=== PATIENT | female | born 1980 | race Caucasian/White ===

== ENCOUNTER 2023-06-12 20:22 | Observation (INO) | payer BC, SELFPAY ==
--- NOTE | ~2023-06-12 | XR_ITS ---
EXAMINATION: XR chest 1V Exam Date/Time: 06/12/2023 21:05 CDT HISTORY: AMS POSSIBLE GRAND MAL SEIZURE PER NOTE Comparison: None. RESULT: Lines, tubes, and devices: None. Lungs and pleura: 4.2 cm cavitary lesion in the right upper lobe. Cardiomediastinal silhouette: Stable. Other: No acute osseous or upper abdominal finding. IMPRESSION: 4.2 cm cavitary lesion in the right upper lobe. Differential consists of infection (including tubercu losis), cavitary malignancy, noninfectious granuloma, and pulmonary infarct. Reviewed, dictated and finalized at location K. IMPRESSION: 4.2 cm cavitary lesion in the right upper lobe. Differential consists of infect ion (including tuberculosis), cavitary malignancy, noninfectious granuloma, and pulmonary infarct.
--- NOTE | ~2023-06-12 | MR_ITS ---
EXAMINATION: MR brain/brain stem wo/w con DATE: 06/13/2023 11:00 INDICATION: AMS, seizure? TECHNIQUE: Magnetic resonance imaging (MRI) of the brain and brainstem was performed without and with 10 mL MultiHance intravenous contrast. Sequences included sagittal and axial T1-weighted SE, axial d iffusion-weighted, axial T2*-weighted GRE, axial and coronal T2-weighted FLAIR, axial T2-weighted Pro peller, coronal FSPGR 3-D and T2 FLAIR. Postcontrast axial, sagittal, and coronal T1-weighted SE was obtained. Apparent diffusion coefficient (ADC) maps were created. COMPARISON: CT brain 06/12/2023. FINDINGS: No abnormal restricted diffusion to suggest acute ischemic infarct. No MRI evidence of hemorrhage or extra-axial collection. No suspicious foci of susceptibility to suggest prior intraparenchymal hemorr davie. Normal white matter signal. No evidence of advanced or lobar predominant parenchymal volume los s. The basilar cisterns are patent. Flow voids are preserved. Paranasal sinuses are within normal ruiz its. Globes and orbital contents are within normal limits. No abnormal enhancement. IMPRESSION: Normal MR brain findings. Reviewed, dictated and finalized at location K. IMPRESSION: Normal MR brain findings.
--- NOTE | ~2023-06-12 | CT_ITS ---
EXAMINATION: CT brain wo con DATE: 06/12/2023 21:10 INDICATION: AMS, possible seizure . TECHNIQUE: Computed tomography (CT) of the head was performed without intravenous contrast. The mA wa s adjusted according to patient size. Iterative reconstruction technique was employed. The dose-lengt h product was 756.67 mGy-cm. COMPARISON: None. FINDINGS: No acute intracranial hemorrhage or extra-axial fluid collection. No hydrocephalus, mass, or herniation. No acute ischemic infarct. Unremarkable dural venous sinus attenuation. No acute osseous abnormality. The aerated spaces are clear. IMPRESSION: No acute intracranial process. Reviewed, dictated and finalized at location K.
--- NOTE | ~2023-06-12 | US_ITS ---
EXAMINATION: US right upper quadrant DATE: 06/13/2023 16:21 INDICATION: elevated liver enzymes, hyperemic gallbladder TECHNIQUE: Multiple grayscale and Doppler ultrasound images of the right upper quadrant were obtained . COMPARISON: CTPA chest, abdomen/pelvis 06/12/2023. FINDINGS: The visualized portions of the pancreas are normal. Mild liver enlargement. Increased liver parenchyma echogenicity. No surface nodularity. Normal hepatopetal flow in the main portal vein. The gallbladder is partially collapsed, contains mobile sludge and echogenic foci likely representing st ones, without wall thickening. The common bile duct measures 3 mm. There was no sonographic [place] si gn. IMPRESSION: Mild hepatomegaly. Gallstones and biliary sludge. No pericholecystic fluid or gallbladder wall thicke madi. Reviewed, dictated and finalized at location K. IMPRESSION: Mild hepatomegaly. Gallstones and biliary sludge. No pericholecystic fluid or g allbladder wall thickening.
--- NOTE | ~2023-06-12 | CT_ITS ---
EXAMINATION: CTA chest PE abdomen pel DATE: 06/12/2023 23:22 INDICATION: abnormal CXR TECHNIQUE: Computed tomography angiography (CTA) of the chest was performed with 100 mL Omnipaque-350 intravenous contrast timed to evaluate the pulmonary arteries, followed by portal venous phase imagi ng of the abdomen and pelvis. Coronal maximum intensity projection 3D-reconstructions were created by the technologist. The dose-length product (DLP) was 322.41 mGy-cm. Automated exposure control and it erative reconstruction technique were employed. COMPARISON: X-ray chest, same date. FINDINGS: CHEST: Lung parenchyma and airways: 4.3 cm cavitary mass in the right upper lobe with considerable surroundi ng spiculation, eccentric wall thickening, and internal debris and fluid. Medial basilar scar in the left lower lobe. Lungs otherwise clear. Patent airways. Pleura: Unremarkable. Thoracic inlet, axillae and chest wall: No thyroid or soft tissue mass. Thoracic aorta: No significant dilation. No dissection. Mediastinum: Mildly enlarged right hilar nodes. Patulous fluid-filled esophagus. Distal esophageal wa ll thickening. Moderate hiatal hernia. Heart and pericardium: Normal. Coronary artery calcifications: Absent. Thoracic bones: Mild anterior wedge deformity at C7, T6, and T7. Moderate anterior wedge deformity at T8. Concave endplate deformities at multiple levels as can be seen with osteoporosis. Diffuse demine ralization. Pulmonary arteries: Study quality: Adequate. No pulmonary emboli detected. ABDOMEN/PELVIS: Liver: Normal. Biliary/Gallbladder: Gallbladder wall hyperemia, no stones or surrounding inflammatory change/fluid. No bile duct dilation. Pancreas: No mass or duct dilation. Spleen: Normal. Adrenals:No mass. Kidneys: No suspicious mass, obstructing stone, or hydronephrosis. GI tract: Mild gastric wall edema. Fluid-filled colon. Mild diffuse colonic mucosal hyperemia. No sma ll or large bowel dilation. Normal appendix. Mesentery/Peritoneum: No ascites, mass, or free air. Retroperitoneum: No mass. Pelvis: Normal urinary bladder. Small uterus measuring approximately 3.7 cm in length. Normal bilater al ovaries. Simple 2.2 cm left ovarian cyst. Soft Tissues: Soft tissues and body wall unremarkable. Abdominopelvic bones: Diffuse osteopenia. Concave endplate deformities. IMPRESSION: No CT evidence of acute pulmonary embolus. 4.3 cm cavitary right upper lobe lesion, differential includes infection (TB, fungal, bacterial), cav itary malignancy, and noninfectious granuloma. Patulous fluid-filled esophagus with distal esophagitis and a moderate hiatal hernia, consider noneme rgent GI referral. Endoscopy and swallowing study or esophagram may be helpful for further characteri zation. Mild gastritis. Hyperemic gallbladder wall, correlate for right upper quadrant pain and with biliary labs. Fluid-filled colon as can be seen with diarrheal illness. Small uterus, may represent uterine hypoplasia. Skeletal findings concerning for osteoporosis, consider bone density scanning. Mild vertebral body compression fractures at C7, T6, and T7, moderate compression deformity at T8, co rrelate for acute pain/tenderness. Reviewed, dictated and finalized at location K. IMPRESSION: No CT evidence of acute pulmonary embolus. 4.3 cm cavitary right upper lobe lesion, differential includes infection (TB, f ungal, bacterial), cavitary malignancy, and noninfectious granuloma. Patulous fluid-filled esophagus with distal esophagitis and a moderate hiatal h ernia, consider nonemergent GI referral. Endoscopy and swallowing study or esop hagram may be helpful for further characterization. Mild gastritis. Hyperemic gallbladder wall, correlate
[2023-06-12 20:21] VITALS: BP 112/88; PULSE 116; RESP 15; TEMP 37.2; O2SAT 98
[2023-06-12 20:32] LABS: Glucose Point of Care 141 mg/dl (65-105)
--- NOTE | 2023-06-12 20:36 | ECG_ITS ---
SEE SCANNED COPY FOR CONFIRMED REPORT MTDD
[2023-06-12 20:43] LABS: Basophils Absolute Auto 0.1 K/mm3 (0.0-0.1); Basophils Percent Auto 1.1 % (0.2-1.2); Eosinophils Absolute Auto 0.1 K/mm3 (0-0.3); Eosinophils Percent Auto 0.5 % (0-4.4); Hematocrit 33.5 % (37.0-47.0); Immature Granulocyte Absolute 0.62 K/mm3 (0.00-0.031); Immature Granulocyte Percent A 4.8 % (0-0.5); Lymphocytes Absolute Auto 3.02 K/mm3 (0.9-3.2); Lymphocytes Percent Auto 23.6 % (18.3-44.2); Mean Corpuscular HGB Conc 32.8 g/dl (32-36); Mean Corpuscular Hemoglobin 32.8 pg (26-34); Mean Platelet Volume 9.7 fl (7.4-10.4); Monocytes Absolute Auto 1.4 K/mm3 (0.1-0.6); Monocytes Percent Auto 11.2 % (2.6-8.5); Neutrophils Absolute Auto 7.5 K/mm3 (1.3-6.7); Neutrophils Percent Auto 58.8 % (45.5-73.1); Nucleated Red Blood Cells Perc 0.2 % (0.0-0.2); Platelet Count Result 410 k/mm3 (150-375); Red Blood Count 3.35 M/mm3 (4.2-5.4); Red Cell Distribution Width 18.9 % (11.5-14.5); White Blood Count 12.8 K/mm3 (4.5-10.0)
[2023-06-12 20:53] LABS: Alanine Aminotransferase 68 U/L (6-35); Albumin Level 3.7 g/dL (3.5-5.1); Alkaline Phosphatase 375 U/L (38-126); Anion Gap 9 mmol/L (4-12); Aspartate Amino Transferase 90 U/L (14-36); Bilirubin,Total 1.5 mg/dL (0.2-1.3); Blood Urea Nitrogen 30 mg/dL (7-17); Carbon Dioxide 29 mmol/L (22-30); Chloride 90 mmol/L (98-107); Estimated CRCL calculation 43 ml/min; Estimated Glomerular Filt Rate 45; Glucose 113 mg/dL (65-110); Potassium 3.1 mmol/L (3.4-5.0); Sodium 128 mmol/L (137-145)
[2023-06-12 20:54] LABS: Prothrombin Time 13.1 Seconds (11.1-14.7)
[2023-06-12 20:55] LABS: Partial Thromboplastin Time 24.3 Seconds (22.3-36.8)
--- NOTE | 2023-06-12 21:14 | ED.AMS ---
HPI - Altered Mental Status General Chief Complaint: Altered Mental Status <ABRAHAM Monte Last Filed: 06/13/23 02:44> Stated Complaint: unresponsive <ABRAHAM Monte Last Filed: 06/13/23 02:44> Time Seen by Provider: 06/12/23 20:44 <ABRAHAM Monte Last Filed: 06/13/23 02:44> History of Present Illness HPI narrative: 43-year-old female with a reported history of anorexia presents to emergency department via EMS for altered mental status. Per EMS, the patient was working at her job at [employer] and was typing when she began having ?grand mal seizure?. EMS reports that when they arrived, the patient was sitting in her desk turning her head back and forth while tapping her hands on the keyboard. [place] gave 10 mg of Versed IM prior to arrival. Upon my evaluation, patient is awake, she is alert and oriented to herself only. She believes the year is 2013 and unsure if she has. She continues to say ?I am confused?. When prompted, she denies symptoms including headache, vision changes, focal numbness or weakness, chest pain or shortness of breath, abdominal pain, nausea vomiting, diarrhea, fever, dysuria or hematuria. She does endorse that she has been diagnosed with anorexia and bulimia. She also states that she believes she has a history of his seizures, her last 1 being no less than 1 year ago. She does not believe she has been evaluated by a neurologist and is not taking any medications. <ABRAHAM Monte Last Filed: 06/13/23 02:44> Related Data Home Medications: Home Medications Medication Instructions Recorded Confirmed potassium chloride 20 mEq 20 meq PO DAILY 06/13/23 06/13/23 tablet,extended release(part/cryst) quetiapine 50 mg tablet 50 mg PO QHS 06/13/23 06/13/23 <ABRAHAM Monte Last Filed: 06/13/23 02:44> Allergies/Adverse Reactions: Allergies Allergy/AdvReac Type Severity Reaction Status Date / Time No Known Allergies Allergy Verified 06/12/23 21:33 <ABRAHAM Monte Last Filed: 06/13/23 02:44> Review of Systems Review of Systems: CONSTITUTIONAL: Denies fever, chills, or sweats. EYES: Denies visual changes, redness, or discharge. ENT: Denies rhinorrhea, congestion, sore throat, or otalgia. CARDIOVASCULAR: Denies chest pain, palpitations, or edema. RESPIRATORY: Denies cough or dyspnea. GASTROINTESTINAL: Denies abdominal pain, nausea, vomiting, or diarrhea. GENITOURINARY: Denies dysuria or hematuria. SKIN: Denies rash or itching. MUSCULOSKELETAL: Denies back pain, joint pain, or myalgia. NEUROLOGIC: See HPI PSYCHIATRIC: Denies anxiety or depression. <Alysa Huynh PA-C - Last Filed: 06/13/23 02:44> [facility] Social History Social History: Social History Years smoked: 4 Smoking status: Former smoker Tobacco type: cigarettes Second hand tobacco smoke exposure: Yes Alcohol intake: current Drinks per week: 3 Substance use: never Do You Feel Safe in your Home?: Yes Lack of Transportation: No Lack of Food: Never True Current Housing: I Have Housing Concerned About Future Housing: No Difficulty Paying Gas/Electric Bills: No Difficulty Paying for Meds: No Currently Unemployed: No Education: Trade/Vocational Certificate Difficulty w/ Childcare or Family Care: No Spiritual care concerns: No <Alysa Huynh PA-C - Last Filed: 06/13/23 02:44> Exam Narrative: GENERAL: Well-appearing, well-nourished, and in no acute distress. HEAD: Normocephalic, atraumatic. EYES: PERRLA and EOMI. ENT: Nares clear, no rhinorrhea or epistaxis. Mucous membranes moist. NECK: Mild tenderness over C6-C7 without step-offs or deformities. BACK: No thoracolumbar spinous tenderness, step-offs or deformities. CHEST: Clear to auscultation. No respiratory distress. HEART: Regular rate and rhythm. No murmur heard. Normal peripheral pulses.
[2023-06-12 21:18] LABS: Magnesium 1.5 mg/dL (1.6-2.3); Phosphorus 4.8 mg/dL (2.5-4.5)
[2023-06-12 21:21] LABS: Acetaminophen < 10 ug/mL (10-30); Ethanol < 10 mg/dL (<10); Salicylate < 1.0 mg/dL (2-20)
[2023-06-12] MEDS: SODIUM CHLORIDE 0.9% IV 1,000 ML 999 ML IV CONT ×2 (21:27→21:35)
[2023-06-12 21:31] LABS: Troponin I < 0.012 ng/mL (0.000-0.034)
[2023-06-12] MEDS: POTASSIUM CHLORIDE 20 MEQ PACKET (FOR LIQUID) 40 MEQ PO (21:35)
[2023-06-12] MEDS: FAMOTIDINE 20 MG/2 ML VIAL IV PUSH (21:35)
[2023-06-12 21:40] LABS: Lactic Acid Reflex 2.5 mmol/L (0.7-2.0)
[2023-06-12] MEDS: MAGNESIUM SULF 2 GM/WATER 50ML 2 GM/50 ML BAG IVPB (21:40)
[2023-06-12 22:31] VITALS: BP 108/80; PULSE 98; RESP 15; O2SAT 98
[2023-06-13] VITALS (9 sets, daily range): BP systolic 92–122; BP diastolic 64–92; PULSE 76–97; RESP 14–16; TEMP 35.9–36.6; O2SAT 92–100; BMI 15.3
[2023-06-13] LABS: Appearance Urine Clear (Clear); Bilirubin Urine Negative (Negative); Blood Urine Negative (Negative); Color Urine Yellow (Yellow); Glucose Urine UA Negative (Negative); Ketones Urine Negative (Negative); Leukocyte Esterase Ur Negative LEU/UL (Negative); Nitrate Urine Negative (Negative); Protein Urine Negative (Negative); Specific Grav Ur 1.019 (1.001-1.035); Urobilinogen Urine 0.2 mg/dL (<2.0)
[2023-06-13 00:04] LABS: Add Urine Microscopic? NO
[2023-06-13 00:29] LABS: Reflex Lactic Acid Yes or No Add Lactic
[2023-06-13 00:35] LABS: Free T4 Free Thyroxine 1.37 ng/mL (0.78-2.19)
[2023-06-13 00:38] LABS: Amphetamine Screen Urine Negative (Negative); Barbiturate Screen Urine Negative (Negative); Benzodiazepines Screen Urine Positive (Negative); Cannabinoid Screen Urine Negative (Negative); Cocaine Screen Urine Negative (Negative); Methadone Screen Urine Negative (Negative); Opiate Screen Urine Negative (Negative); Phencyclidine Screen Urine Negative (Negative)
[2023-06-13 01:20] LABS: Lactic Acid 0.9 mmol/L (0.7-2.0)
[2023-06-13] MEDS: levETIRAcetam 1000MG/NACL100ML 1,000 MG/100 ML BAG 400 MG IVPB (02:40)
--- NOTE | 2023-06-13 07:20 | PM.IMHP ---
H&P: HPI History of Present Illness Date/Time: 06/13/23 07:20 Chief Complaint: Altered mental status Narrative: This is a 43 year old female with a significant past medical history of insomnia, anorexia, and bulimia who presented to the hospital for evaluation of altered mental status. Most of history of presenting symptoms were obtained from the medical record as patient does not recall what had happened prior to arrival to the hospital. Patient states that she remembers feeling weird at work but then didn't know anything that happened between that time and waking up here. Per EMS report, patient was working at her job at [employer] and was typing when she began having seizure like activity. EMS reports that when they arrived, the patient was sitting in her desk, turning her head back and forth while tapping her hands on the keyboard. She was given 10 mg of Versed IM in route to the hospital. Work up in the hospital includes a head CT which was negative for any acute intracranial process. A chest X-ray that revealed a 4.2 cm cavitary lesion in the right upper lobe. Chest/abdomen/pelvis CTA again shown the 4.3 cm cavitary right upper lobe lesion, patulous fluid-filled esophagus with distal esophagitis and a moderate hiatal hernia, mild gastritis, skeletal findings concerning for osteoporosis, mild vertebral body compression fractures at C7, T6, and T7, moderate compression deformity at T8. EKG showing Sinus tachycardia with rate of 105, QTc 450. Initial labs revealed a WBC 12.8, Hgb 11.0, Na+ 128, K+ 3.1, Chloride 90, BUN 30, Creatinine 1.30, eGFR 45, Lactic acid 2.5 now down to 0.9, Phos 4.8, Magnesium 1.5, total bili 1.5, AST 90, ALT 68, Alk phos 375, TSH 7.930. UA was performed and was negative. Toxicology report showing positive for Benzodiazepines. On examination today patient is alert and oriented x4. She denies any fever, chills, nausea, vomiting, diarrhea, abdominal pain, chest pain, shortness of breath, vision changes, lightheadedness, dizziness, headache. Neurology, Nephrology and observation nurse consult ordered. We will plan for MRI of the brain and EEG today. Review of Systems Review of Systems: All systems reviewed & are unremarkable except as noted in HPI and below Constitutional: Constitutional: Reports as per HPI and Reports no additional constitutional complaints Eyes: Eyes: Reports as per HPI and Reports no additional eye complaints ENT: Reports system reviewed and no additional complaints, except as documented and Reports as per HPI Cardiovascular: Cardiovascular: Reports as per HPI and Reports no additional cardiovascular complaints Respiratory: Respiratory: Reports as per HPI and Reports no additional respiratory complaints Gastrointestinal: Gastrointestinal: Reports as per HPI and Reports no additional gastrointestinal complaints Genitourinary: Genitourinary: Reports no additional female genitourinary complaints and Reports as per HPI Musculoskeletal: Musculoskeletal: Reports no additional musculoskeletal complaints and Reports as per HPI Integumentary/Breasts: Skin/Breast: Reports system reviewed and no additional complaints, except as docu and Reports as per HPI Neurologic: Reports system reviewed and no additional complaints, except as documented and Reports as per HPI Psychiatric: Psychiatric: Reports no additional psychiatric complaints and Reports as per HPI PMFSH Past Medical History Medical History Anorexia nervosa Bulimia nervosa Insomnia Social History Social History Years smoked: 4 Smoking status: Former smoker Tobacco type: cigarettes Second hand tobacco smoke exposure: Yes Alcohol intake: current Drinks per week: 3 Substance use: never Do You Feel Safe in your Home?: Yes Lack of Transportation: No Lack of Food: Never True Current Housing: I Have Housing Concerned About Future
[2023-06-13] MEDS: levETIRAcetam Tablet 250 MG, levETIRAcetam Tablet 500 MG 750 MG PO ×2 (08:27→20:42)
[2023-06-13 09:44] LABS: Basophils Absolute Auto 0.1 K/mm3 (0.0-0.1); Basophils Percent Auto 1.2 % (0.2-1.2); Eosinophils Absolute Auto 0.1 K/mm3 (0-0.3); Eosinophils Percent Auto 0.9 % (0-4.4); Hematocrit 27.6 % (37.0-47.0); Hemoglobin 8.6 g/dL (12.0-15.0); Immature Granulocyte Absolute 0.35 K/mm3 (0.00-0.031); Immature Granulocyte Percent A 4.1 % (0-0.5); Lymphocytes Absolute Auto 1.87 K/mm3 (0.9-3.2); Lymphocytes Percent Auto 21.6 % (18.3-44.2); Mean Corpuscular HGB Conc 31.2 g/dl (32-36); Mean Corpuscular Hemoglobin 33.1 pg (26-34); Mean Corpuscular Volume 106.2 fl (80-100); Mean Platelet Volume 9.5 fl (7.4-10.4); Monocytes Absolute Auto 1.1 K/mm3 (0.1-0.6); Monocytes Percent Auto 12.7 % (2.6-8.5); Neutrophils Absolute Auto 5.1 K/mm3 (1.3-6.7); Neutrophils Percent Auto 59.5 % (45.5-73.1); Platelet Count Result 392 k/mm3 (150-375); Red Cell Distribution Width 18.8 % (11.5-14.5); White Blood Count 8.6 K/mm3 (4.5-10.0)
[2023-06-13 09:50] LABS: Ammonia 29 umol/L (9-30)
[2023-06-13 10:04] LABS: Alanine Aminotransferase 47 U/L (6-35); Albumin Level 2.6 g/dL (3.5-5.1); Alkaline Phosphatase 283 U/L (38-126); Anion Gap 3 mmol/L (4-12); Aspartate Amino Transferase 56 U/L (14-36); Bilirubin,Total 1.1 mg/dL (0.2-1.3); Blood Urea Nitrogen 19 mg/dL (7-17); Calcium 7.7 mg/dL (8.4-10.2); Carbon Dioxide 26 mmol/L (22-30); Chloride 100 mmol/L (98-107); Estimated CRCL calculation 49 ml/min; Estimated Glomerular Filt Rate > 60; Glucose 93 mg/dL (65-110); Sodium 129 mmol/L (137-145)
[2023-06-13 10:47] LABS: Anisocytosis 1+; Hypochromasia 1+; Platelet Estimate Adequate (Adequate); Schistocytes None Seen
[2023-06-13 10:48] LABS: Macrocytosis 1+ (NORMAL)
[2023-06-13] MEDS: SODIUM CHLORIDE 0.9% IV 1,000 ML 50 ML IV CONT (14:01)
--- NOTE | 2023-06-13 14:29 | WPDNEURCNPN ---
Assessment and Plan Assessment and plan (1) Anorexia nervosa: Code(s): F50.00 - Anorexia nervosa, unspecified Status: Acute (2) Seizure: Code(s): R56.9 - Unspecified convulsions Status: Acute (3) Protein calorie malnutrition: Code(s): E46 - Unspecified protein-calorie malnutrition Status: Acute Plan 1. Change in the mental status rule out the possibility of seizure will need the EEG as the clinical picture is of seizure disorder 2. Right upper lobe cavitary lesion need to be pursued further for the infectious versus malignancy. 3. Hyponatremia which could be contributing factor to the seizure disorder 4. Compression fracture of the spine T6 and T7 in addition to TA will need to be evaluated further. Consult date: 06/13/23 HPI: Destiney Stewart is a 43 year old female admitted to the hospital through the emergency room where she was brought by the EMS for the complaints of change in the mental status reportedly she was working at her job at [employer] and was typing when she began having grand mal seizures. When EMS arrived at the scene she was sitting in her desk turning her head back and forth while tapping her hands on the keyboard. EMS gave 10mg of Versed intramuscular prior to the arrival in the emergency room patient was awake alert and oriented to herself only, she believed the year was 2013 she continued to say I am confused when prompted she did not complained of headache, visual changes, focal numbness or weakness, or any difficulties in breathing as well as no pain but she mentioned that she has been diagnosed with anorexia and bulimia in addition that she has a history of seizures and the last seizure being less than 1 year ago though she has not been evaluated by any neurologist. Her medications included potassium chloride 20mEq daily and Seroquel 50mg at night with no history of being allergic to any medications. She gave the history of being former smoker, currently alcohol drinker that is 3 drinks per week, never using substance, and her initial examination in the emergency room was nonfocal except that she was oriented x1. Her vital signs were with pulse of 116, evaluation included CBC with WBCs 12.8 TSH was 7.930 and alkaline phos 375 with ALT 68 AST 90 in addition to total bilirubin 1.5 and magnesium 1.5 drug screen was negative except for benzodiazepine initial CT scan of the head was negative for the bleed, there was 4.2cm cavitary lesion in the right upper lung, CT scan of the chest confirmed the cavitary in the right upper lobe lesion of 4.3cm size, there was a hint of osteoporosis with compression fracture of C7-T6 and T7 and moderate compression deformity at T8. [facility] Past Medical History Medical History Anorexia nervosa Bulimia nervosa Insomnia Social History Social History Years smoked: 4 Smoking status: Former smoker Tobacco type: cigarettes Second hand tobacco smoke exposure: Yes Alcohol intake: current Drinks per week: 3 Substance use: never Do You Feel Safe in your Home?: Yes Lack of Transportation: No Lack of Food: Never True Current Housing: I Have Housing Concerned About Future Housing: No Difficulty Paying Gas/Electric Bills: No Difficulty Paying for Meds: No Currently Unemployed: No Education: Trade/Vocational Certificate Difficulty w/ Childcare or Family Care: No Spiritual care concerns: No Meds Home Medications and Allergies Home Medications Medication Instructions Recorded Confirmed Type potassium chloride 20 mEq 20 meq PO DAILY 06/13/23 06/13/23 History tablet,extended release(part/cryst) quetiapine 50 mg tablet 50 mg PO QHS 06/13/23 06/13/23 History Allergies Allergy/AdvReac Type Severity Reaction Status Date / Time No Known Allergies Allergy Verified 06/12/23 21:33 Vital Signs Vital Signs - 2
[2023-06-13] MEDS: POTASSIUM CHLORIDE 20 MEQ ER TABLET 40 MEQ PO (17:50)
[2023-06-13] MEDS: MELATONIN 5 MG TABLET PO (20:42)
[2023-06-13] MEDS: QUEtiapine FUMARATE 25 MG TABLET 50 MG PO (20:42)
[2023-06-14] VITALS: BP 75/45; PULSE 71; PULSE 77; RESP 16; TEMP 36.4; O2SAT 100
[2023-06-14 04:00] VITALS: PULSE 68
--- NOTE | 2023-06-14 06:09 | PC.NURSE ---
Pt is A&O 4. Pt pulled her IV out. A new IV was placed and pt began pulling it out. I asked her to stop and she told me to remove it now! Pt then instructed me to don't touch me anymore. I don't want one of those! I removed the working IV that was just placed and left the room.
--- NOTE | 2023-06-14 06:11 | PC.NURSE ---
Pt was given PO potassium during the day shift. The day nurse did not witness administration as I found the potassium pills in the med cup on the bedside table. I instructed pt that she needed to take the pills as her potassium was low. Pt said she was refusing to swallow pills as they were too large. I placed the pills in water so they would dissolve. Pt then pushed the cup with the dissolved pill water in it over again refusing to take the pills.
[2023-06-14 06:14] LABS: Basophils Absolute Auto 0.1 K/mm3 (0.0-0.1); Basophils Percent Auto 1.3 % (0.2-1.2); Eosinophils Absolute Auto 0.1 K/mm3 (0-0.3); Eosinophils Percent Auto 2.2 % (0-4.4); Hematocrit 26.9 % (37.0-47.0); Hemoglobin 8.5 g/dL (12.0-15.0); Immature Granulocyte Absolute 0.25 K/mm3 (0.00-0.031); Immature Granulocyte Percent A 4.2 % (0-0.5); Lymphocytes Absolute Auto 2.44 K/mm3 (0.9-3.2); Lymphocytes Percent Auto 40.9 % (18.3-44.2); Mean Corpuscular HGB Conc 31.6 g/dl (32-36); Mean Corpuscular Hemoglobin 33.3 pg (26-34); Mean Corpuscular Volume 105.5 fl (80-100); Mean Platelet Volume 9.5 fl (7.4-10.4); Monocytes Absolute Auto 0.8 K/mm3 (0.1-0.6); Monocytes Percent Auto 14.1 % (2.6-8.5); Neutrophils Absolute Auto 2.2 K/mm3 (1.3-6.7); Neutrophils Percent Auto 37.3 % (45.5-73.1); Platelet Count Result 403 k/mm3 (150-375); Red Blood Count 2.55 M/mm3 (4.2-5.4); Red Cell Distribution Width 18.6 % (11.5-14.5)
[2023-06-14 06:31] LABS: Alanine Aminotransferase 41 U/L (6-35); Albumin Level 2.5 g/dL (3.5-5.1); Alkaline Phosphatase 223 U/L (38-126); Anion Gap 1 mmol/L (4-12); Aspartate Amino Transferase 43 U/L (14-36); Bilirubin,Total 1.2 mg/dL (0.2-1.3); Blood Urea Nitrogen 14 mg/dL (7-17); Calcium 7.9 mg/dL (8.4-10.2); Carbon Dioxide 24 mmol/L (22-30); Chloride 106 mmol/L (98-107); Estimated CRCL calculation 55 ml/min; Estimated Glomerular Filt Rate > 60; Glucose 85 mg/dL (65-110); Magnesium 1.8 mg/dL (1.6-2.3); Phosphorus 4.1 mg/dL (2.5-4.5); Potassium 2.3 mmol/L (3.4-5.0); Sodium 131 mmol/L (137-145)
[2023-06-14] MEDS: POTASSIUM CHLORIDE 20 MEQ PACKET (FOR LIQUID) 40 MEQ PO ×3 (06:45→17:56)
[2023-06-14 07:01] LABS: Anisocytosis 2+; Hypochromasia 1+; Macrocytosis 1+ (NORMAL); Platelet Estimate Adequate (Adequate)
[2023-06-14 07:02] LABS: Schistocytes Rare
[2023-06-14] MEDS: levETIRAcetam Tablet 250 MG, levETIRAcetam Tablet 500 MG 750 MG PO ×2 (10:20→20:27)
[2023-06-14] MEDS: KCL 40 MEQ/0.9% SOD CHL 1,000 ML 100 ML IV CONT (13:33)
--- NOTE | 2023-06-14 14:01 | PM.DS ---
DS: Admitting Diagnosis Discharge Date 06/14/23 Admitting Diagnosis Altered mental status Seizure Hyponatremia Hypokalemia hypomagnesemia Protein calorie malnutrition Anorexia nervosa Bulimia nervosa Acute kidney injury Elevated bilirubin Elevated liver enzymes Cavity lesion Compression fracture Insomnia DS: Discharge Diagnosis Discharge Diagnosis (1) Altered mental status: Qualifiers: Altered mental status type: unspecified Qualified Code(s): R41.82 - Altered mental status, unspecified Code(s): R41.82 - Altered mental status, unspecified Status: Acute (2) Seizure: Code(s): R56.9 - Unspecified convulsions Status: Acute (3) Hyponatremia: Code(s): E87.1 - Hypo-osmolality and hyponatremia Status: Acute (4) Hypomagnesemia: Code(s): E83.42 - Hypomagnesemia Status: Acute (5) Hypokalemia: Code(s): E87.6 - Hypokalemia Status: Acute (6) Protein calorie malnutrition: Code(s): E46 - Unspecified protein-calorie malnutrition Status: Acute (7) Anorexia nervosa: Code(s): F50.00 - Anorexia nervosa, unspecified Status: Acute (8) Bulimia nervosa: Code(s): F50.2 - Bulimia nervosa Status: Acute (9) CLAY (acute kidney injury): Code(s): N17.9 - Acute kidney failure, unspecified Status: Acute (10) Elevated bilirubin: Code(s): R17 - Unspecified jaundice Status: Acute (11) Elevated liver enzymes: Code(s): R74.8 - Abnormal levels of other serum enzymes Status: Acute (12) Cavitary lesion of lung: Code(s): J98.4 - Other disorders of lung Status: Acute (13) Compression fracture: Status: Acute (14) Insomnia: Code(s): G47.00 - Insomnia, unspecified Status: Acute DS: Summary Hospital Course Reason for hospitalization: Altered mental status Seizure Hyponatremia Hypokalemia hypomagnesemia Protein calorie malnutrition Anorexia nervosa Bulimia nervosa Acute kidney injury Elevated bilirubin Elevated liver enzymes Cavity lesion Compression fracture Insomnia Hospital Course: 06/13/23: This is a 43 year old female with a significant past medical history of insomnia, anorexia, and bulimia who presented to the hospital for evaluation of altered mental status. Most of history of presenting symptoms were obtained from the medical record as patient does not recall what had happened prior to arrival to the hospital. Patient states that she remembers feeling weird at work but then didn't know anything that happened between that time and waking up here.? Per EMS report, patient was working at her job at [employer] and was typing when she began having seizure like activity. EMS reports that when they arrived, the patient was sitting in her desk, turning her head back and forth while tapping her hands on the keyboard. She was given 10 mg of Versed IM in route to the hospital. Work up in the hospital includes a head CT which was negative for any acute intracranial process. A chest X-ray that revealed a 4.2 cm cavitary lesion in the right upper lobe. Chest/abdomen/pelvis CTA again shown the 4.3 cm cavitary right upper lobe lesion, patulous fluid-filled esophagus with distal esophagitis and a moderate hiatal hernia, mild gastritis, skeletal findings concerning for osteoporosis, mild vertebral body compression fractures at C7, T6, and T7, moderate compression deformity at T8. EKG showing Sinus tachycardia with rate of 105, QTc 450. Initial labs revealed a WBC 12.8, Hgb 11.0, Na+ 128, K+ 3.1, Chloride 90, BUN 30, Creatinine 1.30, eGFR 45, Lactic acid 2.5 now down to 0.9, Phos 4.8, Magnesium 1.5, total bili 1.5, AST 90, ALT 68, Alk phos 375, TSH 7.930. UA was performed and was negative. Toxicology report showing positive for Benzodiazepines. On examination today patient is alert and oriented x4. She denies any fever, chills, nausea, vomiting, diarrhea, abdominal pain, chest pain, shortnes
[2023-06-14] MEDS: CALCIUM CARBONATE (TUMS) 500 MG (200 MG ELEMENTAL) 400 MG PO (15:48)
[2023-06-14 16:00] VITALS: BP 82/48; PULSE 74; RESP 18; TEMP 36.5; O2SAT 90
--- NOTE | 2023-06-14 16:57 | PM.CNNEP ---
Assessment and Plan Assessment and plan (1) Hyponatremia: Code(s): E87.1 - Hypo-osmolality and hyponatremia Status: Acute Assessment and Plan: The patient's sodium level is low. Her creatinine is elevated. It is most likely due to pre renal azotemia from her bulimia. The patient also has a cavitary lesion in her right upper lobe. This can also lead to a low-sodium as a space-occupying lesion but also if this was cancer it could cause hyponatremia as well. Hypothyroidism and adrenal insufficiency can do this. quetiapineCan do this as well. Patient's sodium level has improved With fluid restriction. She also is on sodium chloride. Her TSH is normal. Cortisol level is borderline. She should probably get a Cortrosyn stim test. It looks like she is being discharged. She can follow up in the office and get a Cortrosyn stim Test as an outpatient. (2) Hypokalemia: Code(s): E87.6 - Hypokalemia Status: Acute Assessment and Plan: The patient is getting supplements for this. (3) Cavitary lesion of lung: Code(s): J98.4 - Other disorders of lung Status: Acute Assessment and Plan: She will need further evaluation of this. (4) CLAY (acute kidney injury): Code(s): N17.9 - Acute kidney failure, unspecified Status: Acute Assessment and Plan: Her creatinine improved with hydration. (5) Protein calorie malnutrition: Code(s): E46 - Unspecified protein-calorie malnutrition Status: Acute Assessment and Plan: Due to anorexia nervosa and bulimia. History of Present Illness Reason for Consult Consult date: 06/14/23 Chief Complaint Chief complaint: ams History of Present Illness Narrative: Destiney. he has a unfortunate 43-year-old lady who has anorexia, bulimia, insomnia,. The patient came to the hospital because she had altered mental status. She was at work and had a witnessed grand mal seizure . She was seen by the motorcycle service technician and given some Versed. The patient was brought to the emergency room. Here x-ray showed a cavitary lesion in the right upper load, CT a showed the same thing, it also showed mild vertebral body compression fractures. Labs showed a sodium of 128 And a potassium of 3.1. the patient was admitted. She was given supplements. Renal consultation was requested because of the low sodium. Nurses called me last night about this. I placed her on a fluid restriction. The patient now says that she feels okay. She is just cold. Review of Systems Constitutional: Constitutional: Reports no additional constitutional complaints Eyes: Eyes: Reports no additional eye complaints ENT: Reports system reviewed and no additional complaints, except as documented Cardiovascular: Cardiovascular: Reports no additional cardiovascular complaints Respiratory: Respiratory: Reports no additional respiratory complaints Gastrointestinal: Gastrointestinal: Reports no additional gastrointestinal complaints Genitourinary: Genitourinary: Reports no additional female genitourinary complaints Musculoskeletal: Musculoskeletal: Reports no additional musculoskeletal complaints Integumentary/Breasts: Skin/Breast: Reports system reviewed and no additional complaints, except as docu Neurologic: Reports system reviewed and no additional complaints, except as documented Psychiatric: Psychiatric: Reports no additional psychiatric complaints Endocrine: Endocrine: Reports no additional endocrine complaints PMFSH Past Medical History Medical History Anorexia nervosa Bulimia nervosa Insomnia Social History Social History Years smoked: 4 Smoking status: Former smoker Tobacco type: cigarettes Second hand tobacco smoke exposure: Yes Alcohol intake: current Drinks per week: 3 Substance use: never Do You Fe
[2023-06-14] MEDS: COSYNTROPIN 0.25 MG/ML VIAL IV PUSH (17:51)
--- NOTE | 2023-06-14 20:32 | PC.NURSE ---
This RN has given pm dose of keppra and walked Pt out to front entrance and saw them get into family vehicle.
[2023-06-17 14:38] LABS: Osmolality, Urine 532 mOsm/kg (50-1200)
== END 2023-06-14 20:40 | disposition home or self-care (01) ==
LOC: ANHED 06-13 01:44 → ANH3MEDSUR 06-14 14:01
PROVIDERS: Emergency Medicine; Internal Medicine Nephrology; Nurse Practitioner Acute Care; Admitting Provider Internal Medicine; Emergency Provider Physician Assistant; Visit Provider Internal Medicine
DX: G40.909 Epilepsy, unspecified, not intractable, without status epilepticus (principal); N17.9 Acute kidney failure, unspecified; S12.600A Unspecified displaced fracture of seventh cervical vertebra, initial encounter for closed fracture; S22.050A Wedge compression fracture of T5-T6 vertebra, initial encounter for closed fracture; S22.060A Wedge compression fracture of T7-T8 vertebra, initial encounter for closed fracture; X58.XXXA Exposure to other specified factors, initial encounter; R41.82 Altered mental status, unspecified; R17 Unspecified jaundice; R74.8 Abnormal levels of other serum enzymes; J98.4 Other disorders of lung; E43 Unspecified severe protein-calorie malnutrition; E87.1 Hypo-osmolality and hyponatremia; R79.89 Other specified abnormal findings of blood chemistry; E87.6 Hypokalemia; E87.8 Other disorders of electrolyte and fluid balance, not elsewhere classified; E83.42 Hypomagnesemia; G47.00 Insomnia, unspecified; F50.2 Bulimia nervosa; Z68.1 Body mass index [BMI] 19.9 or less, adult; Z87.891 Personal history of nicotine dependence
CPT/HCPCS: 36415; 70450; 70553; 71045; 71275; 74177; 76705; 80053; 80307; 81003; 82140; 82533; 82948; 83605; 83735; 83930; 83935; 84100; 84439; 84443; 84484; 85025; 85610; 85730; 93005; 96361; 96365; 96366; 96374; 96375; 99285; A9270; A9577; G0378; G0379; J0834; J1953; J3475; J7030; Q9967